=== PATIENT | male | born 1955 | race Caucasian/White ===

== ENCOUNTER 2017-08-17 03:56 | Inpatient (IN) | payer OTHER, MEDICAID ==
[2017-08-17] MEDS: SOD CHLORIDE 0.9% 500 ML IV (04:29)
[2017-08-17 04:54] LABS: ADD MAN DIFF? NO
[2017-08-17 04:55] LABS: BASOPHIL # 0.1 10^3/ul (0.0-0.1); BASOPHILS % 0.4 % (0.0-2.0); EOSINOPHILS # 0.1 10^3/ul (0.0-0.5); EOSINOPHILS % 1.2 % (0.0-7.0); HEMATOCRIT 41.4 % (42.0-52.0); HEMOGLOBIN 13.7 g/dl (14.0-18.0); LYMPHOCYTES # 1.4 10^3/ul (0.8-2.9); LYMPHOCYTES % 11.6 % (15.0-51.0); MEAN CORPUSCULAR HEMOGLOBIN 29.6 pg (29.0-33.0); MEAN CORPUSCULAR HGB CONC 33.1 g/dl (32.0-37.0); MEAN CORPUSCULAR VOLUME 89.4 fl (82.0-101.0); MEAN PLATELET VOLUME 10.7 fl (7.4-10.4); MONOCYTES % 8.4 % (0.0-11.0); NEUTROPHIL # 9.1 10^3/ul (1.6-7.5); NEUTROPHILS % 78.1 % (39.0-77.0); PLATELET COUNT 273 10^3/UL (140-415); RED BLOOD COUNT 4.63 10^6/ul (4.70-6.10); RED CELL DISTRIBUTION WIDTH 13.5 % (11.5-14.5)
[2017-08-17 04:55] LABS: WHITE BLOOD COUNT 11.6 10^3/ul (4.8-10.8)
[2017-08-17 05:15] LABS: ALANINE AMINOTRANSFERASE 27 IU/L (13-69); ALBUMIN/GLOBULIN RATIO 1.31; ALKALINE PHOSPHATASE 108 IU/L (42-121); ANION GAP 19 (8-16); ASPARTATE AMINO TRANSFERASE 22 IU/L (15-46); BILIRUBIN,INDIRECT 0.8 mg/dl (0-1.1); BILIRUBIN,TOTAL 0.8 mg/dl (0.2-1.3); BLOOD UREA NITROGEN 14 mg/dl (7-20); CALCIUM 9.3 mg/dl (8.4-10.2); CARBON DIOXIDE 23 mmol/L (21-31); CHLORIDE 104 mmol/L (97-110); CREATININE 0.96 mg/dl (0.61-1.24); GLUCOSE 126 mg/dl (70-220); LIPASE 142 U/L (23-300); POTASSIUM 3.9 mmol/L (3.5-5.1); SODIUM 142 mmol/L (135-144); TOTAL PROTEIN 8.8 g/dl (6.1-8.1)
[2017-08-17 05:40] LABS: ADD UMIC YES; UR ASCORBIC ACID NEGATIVE (NEGATIVE); UR BACTERIA FEW /HPF (NONE SEEN); UR BILIRUBIN (Dip) NEGATIVE (NEGATIVE); UR BLOOD (Dip) 3+ mg/dL (NEGATIVE); UR CLARITY TURBID (CLEAR); UR COLOR AMBER (YELLOW); UR GLUCOSE (Dip) 2+ mg/dL (NEGATIVE); UR KETONES (Dip) TRACE mg/dL (NEGATIVE); UR LEUKOCYTE ESTERASE (Dip) NEGATIVE Leu/ul (NEGATIVE); UR NITRITE (Dip) NEGATIVE (NEGATIVE); UR RBC > 182 /HPF (0-5); UR SPECIFIC GRAVITY (Dip) 1.028 (1.003-1.030); UR TOTAL PROTEIN (Dip) 3+ mg/dl (NEGATIVE); UR UROBILINOGEN (Dip) NEGATIVE (NEGATIVE); UR WBC 108 /HPF (0-5)
[2017-08-17] MEDS: CEFTRIAXONE 1 GM/50 ML (PMX) 50 ML IVPB (06:05)
[2017-08-17] MEDS ORDERED: ACETAMINOPHEN 325 MG TAB PO (11:00)
[2017-08-17] MEDS ORDERED: ONDANSETRON 4 MG INJ IV (11:00)
[2017-08-17] MEDS: NIFEdipine (XL) 30 MG TAB PO (13:42)
[2017-08-17] MEDS ORDERED: DOCUSATE SODIUM 100 MG CAP PO (15:00)
[2017-08-17] MEDS ORDERED: NACL 0.9% 3 ML SYG IV (15:00)
[2017-08-17] MEDS ORDERED: HYDROCODONE/APAP (5/325) TAB PO (15:00)
[2017-08-17] MEDS ORDERED: ZOLPIDEM 5 MG TAB PO (15:00)
[2017-08-17] MEDS ORDERED: morphine 2 MG INJ IV (15:00)
[2017-08-17] MEDS: SOD CHLORIDE 0.9% 1,000 ML IV (15:56)
[2017-08-17 16:17] LABS: INR 1.14; PROTIME 14.8 Sec (11.9-14.9); PT RATIO 1.2
[2017-08-17] MEDS ORDERED: morphine LIQ (10 MG/5 ML) CUP PO (16:30)
[2017-08-17 17:55] LABS: HEMATOCRIT 34.9 % (42.0-52.0); HEMOGLOBIN 11.6 g/dl (14.0-18.0)
[2017-08-17] MEDS: TAMSULOSIN (SR) 0.4 MG CAP PO (20:55)
[2017-08-17] MEDS: ATORVASTATIN 40 MG TAB PO (20:55)
[2017-08-17] MEDS: FINASTERIDE 5 MG TAB PO (20:56)
[2017-08-18] MEDS: PANTOPRAZOLE (EC) 40 MG TAB PO (05:14)
[2017-08-18] MEDS: CEFTRIAXONE 1 GM/50 ML (PMX) 50 ML IVPB (05:15)
[2017-08-18 06:18] LABS: ADD MAN DIFF? NO
[2017-08-18 06:22] LABS: BASOPHILS % 0.3 % (0.0-2.0); EOSINOPHILS % 0.2 % (0.0-7.0); HEMATOCRIT 33.6 % (42.0-52.0); HEMOGLOBIN 11.3 g/dl (14.0-18.0); LYMPHOCYTES # 1.2 10^3/ul (0.8-2.9); MEAN CORPUSCULAR HEMOGLOBIN 30.1 pg (29.0-33.0); MEAN CORPUSCULAR HGB CONC 33.6 g/dl (32.0-37.0); MEAN CORPUSCULAR VOLUME 89.6 fl (82.0-101.0); MEAN PLATELET VOLUME 10.3 fl (7.4-10.4); MONOCYTES % 8.2 % (0.0-11.0); NEUTROPHIL # 10.1 10^3/ul (1.6-7.5); PLATELET COUNT 225 10^3/UL (140-415); RED BLOOD COUNT 3.75 10^6/ul (4.70-6.10); RED CELL DISTRIBUTION WIDTH 13.2 % (11.5-14.5)
[2017-08-18 06:22] LABS: WHITE BLOOD COUNT 12.4 10^3/ul (4.8-10.8)
[2017-08-18 06:42] LABS: MAGNESIUM 1.8 mg/dl (1.7-2.5)
[2017-08-18 06:42] LABS: PHOSPHORUS 3.8 mg/dl (2.5-4.9)
[2017-08-18 06:44] LABS: ALANINE AMINOTRANSFERASE 23 IU/L (13-69); ALBUMIN 3.7 g/dl (3.3-4.9); ALBUMIN/GLOBULIN RATIO 1.19; ALKALINE PHOSPHATASE 82 IU/L (42-121); ANION GAP 13 (8-16); ASPARTATE AMINO TRANSFERASE 13 IU/L (15-46); BILIRUBIN,INDIRECT 1.4 mg/dl (0-1.1); BILIRUBIN,TOTAL 1.4 mg/dl (0.2-1.3); BLOOD UREA NITROGEN 10 mg/dl (7-20); CALCIUM 8.4 mg/dl (8.4-10.2); CARBON DIOXIDE 24 mmol/L (21-31); CHLORIDE 103 mmol/L (97-110); CREATININE 0.87 mg/dl (0.61-1.24); GLUCOSE 112 mg/dl (70-220); POTASSIUM 3.7 mmol/L (3.5-5.1); SODIUM 136 mmol/L (135-144); TOTAL PROTEIN 6.8 g/dl (6.1-8.1)
[2017-08-18 07:13] LABS: PROSTATE SPECIFIC ANTIGEN 10.3 ng/ml (0.0-4.0)
[2017-08-18] MEDS: FINASTERIDE 5 MG TAB PO (08:26)
[2017-08-18] MEDS: NIFEdipine (XL) 30 MG TAB PO (08:26)
[2017-08-18] MEDS: TAMSULOSIN (SR) 0.4 MG CAP PO (20:43)
[2017-08-18] MEDS: ATORVASTATIN 40 MG TAB PO (20:47)
[2017-08-19] MEDS: PANTOPRAZOLE (EC) 40 MG TAB PO (06:20)
[2017-08-19] MEDS: CEFTRIAXONE 1 GM/50 ML (PMX) 50 ML IVPB (06:20)
[2017-08-19] MEDS: NIFEdipine (XL) 30 MG TAB PO (08:48)
[2017-08-19] MEDS: FINASTERIDE 5 MG TAB PO (08:48)
[2017-08-19] MEDS: TAMSULOSIN (SR) 0.4 MG CAP PO (21:04)
[2017-08-19] MEDS: ATORVASTATIN 40 MG TAB PO (21:04)
[2017-08-20 05:47] LABS: ADD MAN DIFF? NO
[2017-08-20] MEDS: CEFTRIAXONE 1 GM/50 ML (PMX) 50 ML IVPB (05:49)
[2017-08-20] MEDS: PANTOPRAZOLE (EC) 40 MG TAB PO (05:49)
[2017-08-20 05:53] LABS: BASOPHILS % 0.7 % (0.0-2.0); EOSINOPHILS # 0.2 10^3/ul (0.0-0.5); EOSINOPHILS % 2.8 % (0.0-7.0); HEMATOCRIT 33.7 % (42.0-52.0); HEMOGLOBIN 11.4 g/dl (14.0-18.0); LYMPHOCYTES # 1.4 10^3/ul (0.8-2.9); LYMPHOCYTES % 22.5 % (15.0-51.0); MEAN CORPUSCULAR HEMOGLOBIN 30.1 pg (29.0-33.0); MEAN CORPUSCULAR HGB CONC 33.8 g/dl (32.0-37.0); MEAN CORPUSCULAR VOLUME 88.9 fl (82.0-101.0); MEAN PLATELET VOLUME 10.2 fl (7.4-10.4); MONOCYTE # 0.9 10^3/ul (0.3-0.9); MONOCYTES % 14.6 % (0.0-11.0); NEUTROPHIL # 3.6 10^3/ul (1.6-7.5); NEUTROPHILS % 59.2 % (39.0-77.0); PLATELET COUNT 265 10^3/UL (140-415); RED BLOOD COUNT 3.79 10^6/ul (4.70-6.10); RED CELL DISTRIBUTION WIDTH 12.7 % (11.5-14.5)
[2017-08-20] MEDS: FINASTERIDE 5 MG TAB PO (08:25)
[2017-08-20] MEDS: ASPIRIN 81 MG TAB PO (08:26)
[2017-08-20] MEDS: NIFEdipine (XL) 30 MG TAB PO (08:26)
== END 2017-08-20 16:15 | disposition home or self-care (01) | DRG 813 ==
LOC: E/R 03:56 → MS2 05:58
DX: D68.32 Hemorrhagic disorder due to extrinsic circulating anticoagulants (principal); N39.0 Urinary tract infection, site not specified; T45.525A Adverse effect of antithrombotic drugs, initial encounter; R31.0 Gross hematuria; N40.0 Benign prostatic hyperplasia without lower urinary tract symptoms; I25.10 Atherosclerotic heart disease of native coronary artery without angina pectoris; I10 Essential (primary) hypertension; E78.5 Hyperlipidemia, unspecified; B96.20 Unspecified Escherichia coli [E. coli] as the cause of diseases classified elsewhere; Z79.02 Long term (current) use of antithrombotics/antiplatelets; Z79.82 Long term (current) use of aspirin; Z95.1 Presence of aortocoronary bypass graft; Z95.5 Presence of coronary angioplasty implant and graft; I25.2 Old myocardial infarction; Z87.891 Personal history of nicotine dependence
CPT/HCPCS: 36415; 74176; 80053; 81001; 82962; 83690; 83735; 84100; 84153; 84154; 85014; 85018; 85025; 85610; 87086; 88104; 93005; 93306; 96374; 99285-25